=== PATIENT | female | born 1995 | race Caucasian/White ===

== ENCOUNTER 2019-01-10 11:37 | Emergency (ER) | payer BC ==
--- NOTE | 2019-01-10 12:20 | EDPHY ---
H & P Stated Complaint: abd/pelvic pain Time Seen by Provider: 01/10/19 12:09 HPI/ROS: CHIEF COMPLAINT: Suprapubic pain for the past 24 hr HISTORY OF PRESENT ILLNESS: 24-year-old immunocompetent female come planning of dysuria increased frequency and suprapubic discomfort the past 24 hr. She went to urgent care this morning and was informed that her urine was nondiagnostic, started on Macrobid recommend she go to the ER for evaluation. She is complaining of nausea. Denies: Vomiting, back or flank pain, fever, chills, flu-like symptoms, abnormal vaginal bleeding or discharge PRIMARY CARE PROVIDER: REVIEW OF SYSTEMS: 10 systems reviewed and negative with the exception of the elements mentioned in the history of present illness PAST MEDICAL & SURGICAL HISTORY: No pertinent medical or surgical history SOCIAL HISTORY: Nonsmoker PHYSICAL EXAM (Prior to examination, patient consented to physical exam, hands were washed and my usual and customary physical exam procedures followed) 1) GENERAL: Well-developed, well-nourished, alert and oriented. Appears to be in no acute distress. Smiling. Sitting upright. Shakes my hand. 2) HEAD: Normocephalic, atraumatic 3) HEENT: Pupils equal, round, reactive to light bilaterally. Sclera anicteric. Nasopharynx, oropharynx, clear, no lesions. Moist Mucous membranes. 4) NECK: Full range of motion, no meningeal signs. 5) LUNGS: Clear auscultation bilaterally, no wheezes, no rhonchi, no retractions. 6) HEART: Regular rate and rhythm, no murmur, no heave, no gallop. 7) ABDOMEN: No guarding, mild suprapubic discomfort upon palpation, negative McBurney's, negative Mccray's, negative Rovsing's, negative peritoneal sign. 8) MUSCULOSKELETAL: Moving all extremities, no focal areas of tenderness, no obvious trauma. No peripheral edema or discoloration. 9) BACK: No CVA tenderness, no midline vertebral tenderness, no fluctuance, no step-off, no obvious trauma, no visual or palpable abnormality. 10) SKIN: No rash, no petechiae. 11) Psychiatric: Patient is oriented X 3, there is no agitation. DIFFERENTIAL DIAGNOSIS: My differential diagnosis includes, but is not limited to, acute appendicitis, acute cholecystitis, bowel obstruction, acute pancreatitis, ovarian torsion, ectopic , gastritis and urinary tract infection. The patient understands that this diagnosis is provisional and can never be 100% accurate. This is a partial list of diagnoses considered. These considerations are based on history, physical exam, past history and reassessment. - Personal History Current Tetanus/Diphtheria Vaccine: Yes Current Tetanus Diphtheria and Acellular Pertussis (TDAP): Yes - Medical/Surgical History Hx Asthma: No Hx Chronic Respiratory Disease: No Hx Diabetes: No Hx Cardiac Disease: No Hx Renal Disease: No Hx Cirrhosis: No Hx Alcoholism: No Hx HIV/AIDS: No Hx Splenectomy or Spleen Trauma: No Other PMH: denies - Social History Smoking Status: Never smoked Constitutional: Initial Vital Signs Temperature (C) 36.6 C 01/10/19 11:50 Heart Rate 76 01/10/19 11:50 Respiratory Rate 16 01/10/19 11:50 Blood Pressure 108/58 L 01/10/19 11:50 O2 Sat (%) 98 01/10/19 11:50 O2 Delivery Mode Room Air Allergies/Adverse Reactions: No Known Allergies Allergy (Unverified 01/10/19 11:50) Home Medications: Medication Instructions Recorded Macrobid 01/10/19 Phenazopyridine HCl [Pyridium] 200 mg PO PC #10 tab 01/10/19 Medical Decision Making - Diagnostics Imaging Results: Imaging Impressions Pelvic/Renal Ultrasound 01/10/19 12:35 Impression: 1. One complex and one dominant simple cyst in the right ovary. Recommend follow -up short interval ultrasound in 4-6 weeks or reevaluation. 2. Pelvic free fluid with low-level echoes may represent hemorrhage or proteinaceous content of other etiology. Might this patient have ruptured a cyst ? PID? Results discussed with Eliecer LUNDBERG. Images reviewed myself ED Course/Re-evaluation: 1:50 p.m.: Re-evaluation. Patient is sitting upright using her phone, smiling appears comfortable. I re-examined her abdomen. She appears to have more focal pain in the right lower quadrant. We discussed her imaging results showing right ovarian cyst. She has been informed that acute appendicitis is not ruled out. We discussed options including serum studies and CT imaging now or recheck in 12-24 hours. After lengthy discussion the patient elects to have recheck in 12-24 hours. I believe her to have decision-making capacity. She does note dysuria and is noted to have bacteriuria on urinalysis however no pyuria. She is already on antibiotics started this morning at an outpatient urgent care. I will also add Pyridium to her medication regimen. Recommend return to the emergency department 12-24 p.m. for recheck. She is agreeable with this. Patient feels comfortable being discharged. All questions and concerns addressed by myself. Patient given my usual and customary discharge precautions and instructions regarding their clinical impression. Care of patient under supervision of secondary supervising physician Dr Young who independently evaluated patient. - Data Points Laboratory Results: 01/10/19 01/10/19 11:55 11:55 Urine Color PALE YELLOW Urine Appearance CLEAR Urine pH 9.0 H (5.0-7.5) Ur Specific [place] 1.002 (1.002-1.030) Urine Protein NEGATIVE (NEGATIVE) Urine Ketones NEGATIVE (NEGATIVE) Urine Blood NEGATIVE (NEGATIVE) Urine Nitrate NEGATIVE (NEGATIVE) Urine Bilirubin NEGATIVE (NEGATIVE) Urine Urobilinogen NEGATIVE EU EU (0.2-1.0) Ur Leukocyte Esterase NEGATIVE (NEGATIVE) Urine RBC NONE SEEN /hpf /hpf (0-3) Urine WBC 1-3 /hpf /hpf (0-3) Ur Epithelial Cells TRACE /lpf /lpf (NONE-1+) Urine Bacteria 4+ /hpf H /hpf (NONE SEEN) Urine Glucose NEGATIVE (NEGATIVE) Urine Test NEGATIVE Departure - Departure Disposition: Home, Routine, Self-Care Clinical Impression: Bacteriuria Abdominal pain Qualifiers: Abdominal location: unspecified location Qualified Code(s): R10.9 - Unspecified abdominal pain Condition: Good Instructions: Acute Abdominal Pain (ED) Additional Instructions: Return to the ER in 12 hr for recheck. Return sooner if you have new or worsening symptoms. Referrals: Return, to the ER in 12 hr for recheck [Other] - As per Instructions Prescriptions: Phenazopyridine HCl [Pyridium] 200 mg PO PC #10 tab
[2019-01-10] MEDS ORDERED: NS 1,000 ML IV ONE (14:25)
[2019-01-10 14:30] LABS: PLATELET COUNT 195 10^3/uL (150-400)
[2019-01-10] MEDS ORDERED: IOPAMIDOL (ISOVUE-300) 100 ML BTL ONE (14:51)
[2019-01-10 15:50] VITALS: BP 101/58
== END 2019-01-10 15:50 | disposition home or self-care (01) ==
DX: R82.71 Bacteriuria (principal); N83.291 Other ovarian cyst, right side; R93.41 Abnormal radiologic findings on diagnostic imaging of renal pelvis, ureter, or bladder
CPT/HCPCS: 82435-PO; 82565-PO; 82947-PO; 84132-PO; 84295-PO; 84520-PO; 85014-ER; Q9967